=== PATIENT | male | born 1985 | race Caucasian/White ===

== ENCOUNTER → 2018-03-16 | Emergency (ER) | payer OTHER ==
--- NOTE | 2018-03-17 07:44 | ER ---
DATE OF SERVICE: 03/16/2018 This 32-year-old gentleman presents to the emergency room with a fishhook to his scalp. He states he just got out of the and he is up to date on his immunizations. He does not need a Dtao, PHYSICAL EXAMINATION: He has a fishhook in his scalp, it was removed, it had been cut down and was removed by holding onto it and quickly backing it out. He tolerated the procedure well. ASSESSMENT: Foreign body in the scalp and it was removed. The wound was allowed to bleed and then cleanse and he was sent home in improved condition. MAYA/SHERMAN /[id number] ESTRELLITA
== END ==
LOC: LB.ED 18:48
DX: S00.05XA Superficial foreign body of scalp, initial encounter (principal); W45.8XXA Other foreign body or object entering through skin, initial encounter
CPT/HCPCS: 99282